=== PATIENT | female | born 1950 | race African-American/Black ===

== ENCOUNTER → 2016-10-07 19:09 | Outpatient (CLI) | payer MEDICARE, OTHER ==
[2015-11-06 06:53] VITALS: BMI 24.6
[~2016-10-07 19:09] MED LIST: AMBIEN10 MG PO; CO Q-1030 MG PO; FISH OIL 1,2001 CAP PO; HYDROCODONE-APA1 TAB PO; LOVAZA1 G PO; MELATONIN 3 MG1 TAB PO; MOBIC7.5 MG PO; MULTI-DAY VITAM1 TAB PO; PRAVACHOL20 MG PO; PREMARIN45 GM VG; PREMPRO 0.45-1.1 TAB PO; PREMPRO 0.45/1.1 TAB PO; RED YEAST RICE600 MG PO; VAGIFEM10 MCG VG; VESICARE5 MG PO
== END | disposition home or self-care (01) ==
LOC: D.MAMMO 09:00 → D.US 10:00 → D.MAMMO 10:30
DX: Z12.31 Encounter for screening mammogram for malignant neoplasm of breast (principal)